=== PATIENT | male | born 1965 | race Caucasian/White ===

== ENCOUNTER 2016-09-14 10:14 | Emergency (ER) | payer MEDICAID ==
[2016-09-14 10:57] LABS: BASOPHILS 0.2 % (0-2); EOSINOPHILS 0.2 % (0-7); HEMATOCRIT 36.1 % (42.0-54.0); HEMOGLOBIN 12.5 g/dL (13.5-17.5); IMMATURE GRANULOCYTES 0.2 % (0-5); MCH 33.1 pg (26.0-34.0); MCHC 34.6 g/dL (31.0-37.0); MCV 95.5 fL (80.0-100.0); MEAN PLATELET VOLUME 9.3 fL (7.4-10.4); MONOCYTES 12.2 % (2-11); NEUTROPHILS 67.2 % (40-80); PLATELET COUNT 207 10x3/uL (130-400); RBC 3.78 10x6/uL (4.20-6.10); RDW 14.9 % (11.5-14.5); WBC 4.4 10x3/uL (4.8-10.8)
[2016-09-14 11:11] LABS: ALBUMIN 3.7 g/dL (3.4-5.0); ANION GAP 13.1 mmol/L (8-16); BILIRUBIN - TOTAL 0.34 mg/dL (0.2-1.3); CALCIUM 8.6 mg/dL (8.5-10.1); CARBON DIOXIDE 27.7 mmol/L (21.0-32.0); CREATININE - SERUM 1.4 mg/dL (0.6-1.3); POTASSIUM - SERUM 3.8 mmol/L (3.5-5.1); PROTEIN - SERUM 7.3 g/dL (6.4-8.2)
== END 2016-09-14 15:10 | disposition other institution (70) ==
LOC: D.ER 10:14 → D.MS 12:46 → D.ER 12:46
PROVIDERS: Emergency Medicine; Nurse Practitioner Family
DX: R10.9 Unspecified abdominal pain (principal); K62.5 Hemorrhage of anus and rectum; K59.03 Drug induced constipation; T40.2X5A Adverse effect of other opioids, initial encounter; Y92.019 Unspecified place in single-family (private) house as the place of occurrence of the external cause; D64.9 Anemia, unspecified; E86.0 Dehydration; N17.9 Acute kidney failure, unspecified; I10 Essential (primary) hypertension; K21.9 Gastro-esophageal reflux disease without esophagitis; C80.1 Malignant (primary) neoplasm, unspecified

== ENCOUNTER → 2017-01-16 10:00 | Outpatient (CLI) | payer MEDICAID ==
[~2017-01-16 10:00] MED LIST: ADOXA100 MG PO; DOXYCYCLINE HY100 M2 PO; ELAVIL25 MG PO; ENDOCET 10-3251 TAB PO; IBUPROFEN200 MG PO; LYRICA75 MG PO; MEPERIDINE HCL50 MG PO; MULTIPLE VITAMI1 TA1 PO; PROTONIX40 MG PO; STOOL SOFTENER100 M1 PO; TRILEPTAL600 MG PO; ZANAFLEX4 MG PO; ZESTORETIC 20-1 EACH PO
[2017-04-01 06:57] VITALS: BMI 30.2
== END | disposition home or self-care (01) ==
LOC: D.CT 10:00
DX: M25.521 Pain in right elbow (principal)

== ENCOUNTER 2017-02-16 11:30 | Day surgery (SDC) | payer MEDICAID ==
[2017-02-13 09:27] LABS: HEMATOCRIT 39.7 % (42.0-54.0); HEMOGLOBIN 13.3 g/dL (13.5-17.5); MCHC 33.5 g/dL (31.0-37.0); MCV 98.5 fL (80.0-100.0); MEAN PLATELET VOLUME 9.8 fL (7.4-10.4); RBC 4.03 10x6/uL (4.20-6.10); RDW 12.4 % (11.5-14.5); WBC 3.7 10x3/uL (4.8-10.8)
[2017-02-13 09:58] LABS: CALC OSMOLALITY 287 mosm/kg (275-300); CALCIUM 9.5 mg/dL (8.5-10.1); CHLORIDE - SERUM 104 mmol/L (98-107); GLUCOSE 113 mg/dL (74-106); POTASSIUM - SERUM 4.2 mmol/L (3.5-5.1); SODIUM 141 mmol/L (136-145); UREA NITROGEN 28 mg/dL (7-18); eGFR NON AFRICAN AMERICAN 84 mL/min (90-120)
[~2017-02-16] VITALS: Ht 175.3 cm; Wt 92.5 kg
[~2017-02-16 11:30] MED LIST changes: -ADOXA100 MG PO; -DOXYCYCLINE HY100 M2 PO; -IBUPROFEN200 MG PO; -MEPERIDINE HCL50 MG PO
[2017-02-16 13:13] VITALS: BP 130/76; Ht 175.3 cm; Wt 92.5 kg
[2017-02-16] MEDS ORDERED: TRILEPTAL600 MG PO (13:44)
[2017-02-16] MEDS ORDERED: ZANAFLEX4 MG PO (13:44)
[2017-02-16] MEDS ORDERED: IBUPROFEN200 MG PO (13:45)
[2017-02-16] MEDS ORDERED: MEPERIDINE HCL50 MG PO (16:08)
--- NOTE | 2017-02-16 17:57 | NUR ---
5025 DISCHARGE INSTRUCTIONS COMPLETE. PT HAS NO QUESTIONS OR CONCERNS AT THIS TIME. PT ESCORTED OUT BY RAYMOND ZURITA.
--- NOTE | 2017-03-09 17:58 | OP ---
PATIENT NAME: DALJIT CLAIRE MEDICAL RECORD: [id number] :[birth year] LOCATION:D.OPS ADMISSION DATE: SURGEON: MAYNOR TSAI MD DATE OF OPERATION: 02/16/2017 PREOPERATIVE DIAGNOSES: 1. Recurrent right lateral epicondylitis. 2. Right cubital tunnel syndrome. POSTOPERATIVE DIAGNOSES: 1. Recurrent right lateral epicondylitis. 2. Right cubital tunnel syndrome. PROCEDURES: 1. Revision right lateral epicondylectomy. 2. Cubital tunnel release. SURGEON: Maynor Tsai MD ANESTHESIA: General. INTRAOPERATIVE COMPLICATIONS: None. SUMMARY OF PATHOLOGIC FINDINGS: The patient had re-avulsed the extensor mechanism with severe tendinitis down to the level of the joint itself and the cubital canal was extremely tight. OPERATIVE SUMMARY IN DETAIL: After obtaining the appropriate orthopedic surgery consent as well as anesthetic consultation, evaluation and clearance, the patient was brought to the operating room and placed on table in supine position. After general laryngeal mask was administered, tourniquet was placed about the proximal aspect of the right upper extremity. Right upper extremity was then prepped and draped in routine sterile fashion. The arm was elevated and exsanguinated, tourniquet inflated to 350 mmHg. Right lateral epicondylectomy was approached first. An incision was made over the lateral epicondyle, taken down to the level of the extensor mechanism and the extensor tendons had been completely released. Some substantial amounts of a fibrotic tendinotic tissue was removed and then the area about the lateral condyle was debrided and a small sagittal saw was take off another layer for good bleeding bone. A small suture anchor was utilized to reapproximate the extensor mechanism back to the bleeding lateral epicondyle. This was closed with #1 Vicryl, for deep closure 2-0 Vicryl followed by 4-0 Prolene. Next, attention was turned to the cubital tunnel. Incision was made between the medial epicondyle and olecranon tip, taken down to the level where the ulnar nerve was identified over the ulnar nerve. Gentle dissection was carried out to expose the ulnar nerve and then adhesive bands both distally and proximally were taken down as the patient did appear to have 2 areas of very tight stenosis. Wound was then irrigated and closed with 2-0 Vicryl followed by 4-0 Prolene in running fashion. Sterile dressings were applied. Tourniquet was deflated. The patient was awakened and taken to the recovery room in stable condition. All final needle and sponge counts were correct. TRANSINT:[id number] Voice Confirmation ID: [id number] DOCUMENT ID: [id number] OPERATIVE REPORT [id number] DALJIT CLAIRE MD, MAYNOR CROUCH at 1758 CC: [id number] DICTATION DATE: 03/09/17 1519 SURGICAL APPLIANCES SALESPERSON: 03/09/17 1613 [facility] 02/16/[address] [address]
== END 2017-02-16 17:55 | disposition home or self-care (01) ==
LOC: D.OPS 11:30 → D.PAN 16:45 → D.OPS 16:45
PROVIDERS: Anesthesiology
DX: G56.21 Lesion of ulnar nerve, right upper limb (principal); M77.11 Lateral epicondylitis, right elbow; I10 Essential (primary) hypertension; Z01.812 Encounter for preprocedural laboratory examination; Z01.810 Encounter for preprocedural cardiovascular examination

== ENCOUNTER 2017-03-01 13:21 | Emergency (ER) | payer MEDICAID ==
[2017-02-16 13:13] VITALS: BMI 30.2
[~2017-03-01 13:21] MED LIST changes: +IBUPROFEN200 MG PO; +MEPERIDINE HCL50 MG PO
== END 2017-03-01 14:57 | disposition home or self-care (01) ==
LOC: D.ER 13:21
DX: M25.521 Pain in right elbow (principal); L53.8 Other specified erythematous conditions; I10 Essential (primary) hypertension

== ENCOUNTER 2017-03-04 16:34 | Inpatient (IN) | payer MEDICAID ==
[~2017-03-04] VITALS: Ht 175.3 cm; Wt 94.3 kg
--- NOTE | 2017-03-04 18:00 | NUR ---
ASSESSMENT PER FLOW SHEET.PT WITHOUT DISTRESS.FAMILY AT BEDSIDE.ORIENTATION TO ROOM.CALL LIGHT IN REACH.IV SITED T LEFT HAND X3 STICKS USUING ASEPTIC TECH,22G.
[2017-03-04 18:11] LABS: BASOPHILS 0.4 % (0-2); EOSINOPHILS 9.3 % (0-7); HEMATOCRIT 39.1 % (42.0-54.0); IMMATURE GRANULOCYTES 0.7 % (0-5); LYMPHOCYTES 17.4 % (15-50); MCH 32.3 pg (26.0-34.0); MCHC 33.2 g/dL (31.0-37.0); MCV 97.3 fL (80.0-100.0); MEAN PLATELET VOLUME 10.1 fL (7.4-10.4); NEUTROPHILS 62.2 % (40-80); RBC 4.02 10x6/uL (4.20-6.10); RDW 12.6 % (11.5-14.5); WBC 5.4 10x3/uL (4.8-10.8)
[2017-03-04 18:12] LABS: PLATELET COUNT 160 10x3/uL (130-400)
[2017-03-04 18:41] LABS: ANION GAP 12.8 mmol/L (8-16); C-REACTIVE PROTEIN 11.8 mg/dL (0.0-0.9); CALCIUM 8.9 mg/dL (8.5-10.1); CREATININE - SERUM 1.2 mg/dL (0.6-1.3); POTASSIUM - SERUM 3.8 mmol/L (3.5-5.1)
[2017-03-04 18:59] VITALS: BP 126/82; BMI 30.8
[2017-03-04 19:06] LABS: ERYTHROCYTE SEDIMENTATION RATE 15 mm/hr (0-20)
[2017-03-04 19:16] VITALS: Ht 175.3 cm; Wt 94.3 kg
[2017-03-04 21:03] VITALS: BP 134/82; BP 93/68
[2017-03-05 00:37] VITALS: BP 125/68
--- NOTE | 2017-03-05 03:00 | NUR ---
PATIENT IS RESTING QUIETLY WITH EYES CLOSED. NO SIGNS OF DISTRESS NOTED. BED IN LOWEST POSITION, CALL LIGHT IN REACH. BED RAILS UP X'S 2.
[2017-03-05 05:00] VITALS: BP 104/64
[2017-03-05 05:57] LABS: BASOPHILS 0.5 % (0-2); HEMATOCRIT 35.1 % (42.0-54.0); HEMOGLOBIN 11.7 g/dL (13.5-17.5); IMMATURE GRANULOCYTES 0.3 % (0-5); LYMPHOCYTES 23.1 % (15-50); MCH 32.2 pg (26.0-34.0); MCHC 33.3 g/dL (31.0-37.0); MCV 96.7 fL (80.0-100.0); MEAN PLATELET VOLUME 9.7 fL (7.4-10.4); MONOCYTES 10.6 % (2-11); NEUTROPHILS 52.5 % (40-80); PLATELET COUNT 207 10x3/uL (130-400); RBC 3.63 10x6/uL (4.20-6.10); RDW 12.6 % (11.5-14.5); WBC 3.9 10x3/uL (4.8-10.8)
[2017-03-05 06:24] LABS: CALC OSMOLALITY 281 mosm/kg (275-300); CALCIUM 8.4 mg/dL (8.5-10.1); CARBON DIOXIDE 28.8 mmol/L (21.0-32.0); CHLORIDE - SERUM 103 mmol/L (98-107); CREATININE - SERUM 1.1 mg/dL (0.6-1.3); GLUCOSE 89 mg/dL (74-106); POTASSIUM - SERUM 3.7 mmol/L (3.5-5.1); SODIUM 139 mmol/L (136-145); UREA NITROGEN 26 mg/dL (7-18); eGFR NON AFRICAN AMERICAN 75 mL/min (90-120)
--- NOTE | 2017-03-05 08:16 | NUR ---
PREOP MEDS ADMINISTERED PER ORDER.
[2017-03-05 08:22] VITALS: BP 135/75
[2017-03-05 10:28] VITALS: BP 151/86
--- NOTE | 2017-03-05 10:52 | NUR ---
PATIENT ARRIVED FROM RECOVERY. VSS. DRESSING IN PLACE TO R ARM. NO COMPLAINTS AT THIS TIME.
--- NOTE | 2017-03-05 13:35 | NUR ---
HELD 0.45 NS FULL BAG WAS IN ROOM. WILL RESCHEDULE WHEN BAG IS EMPTY.
[2017-03-05 16:19] VITALS: BP 120/80
[2017-03-05 20:00] VITALS: BP 122/83
[2017-03-06] VITALS (7 sets, daily range): BP systolic 102–122; BP diastolic 52–67
--- NOTE | 2017-03-06 05:30 | NUR ---
ASSESSED AT THE BEGINNING OF THE SHIFT.. HE WAS WEARING O2 AT 2 LITERS AND WHEN PULSE OX IS LITERS TO KEEP IM STABLE. THE BED IS LOW, RAILS UP X'S 2 WITH THE CALL LIGHT AT HANDS.
[2017-03-06 06:32] LABS: BASOPHILS 0.2 % (0-2); EOSINOPHILS 1.3 % (0-7); HEMATOCRIT 34.3 % (42.0-54.0); HEMOGLOBIN 11.8 g/dL (13.5-17.5); IMMATURE GRANULOCYTES 0.4 % (0-5); LYMPHOCYTES 21.9 % (15-50); MCH 32.9 pg (26.0-34.0); MCHC 34.4 g/dL (31.0-37.0); MCV 95.5 fL (80.0-100.0); MEAN PLATELET VOLUME 9.5 fL (7.4-10.4); MONOCYTES 8.9 % (2-11); NEUTROPHILS 67.3 % (40-80); PLATELET COUNT 209 10x3/uL (130-400); RBC 3.59 10x6/uL (4.20-6.10); RDW 12.2 % (11.5-14.5); WBC 4.7 10x3/uL (4.8-10.8)
[2017-03-06 06:46] LABS: CALC OSMOLALITY 280 mosm/kg (275-300); CALCIUM 8.7 mg/dL (8.5-10.1); CARBON DIOXIDE 31.7 mmol/L (21.0-32.0); CHLORIDE - SERUM 103 mmol/L (98-107); GLUCOSE 109 mg/dL (74-106); POTASSIUM - SERUM 3.7 mmol/L (3.5-5.1); SODIUM 139 mmol/L (136-145); eGFR NON AFRICAN AMERICAN 84 mL/min (90-120)
[2017-03-06 06:48] LABS: UREA NITROGEN 19 mg/dL (7-18)
--- NOTE | 2017-03-06 10:34 | NUR ---
Patient Name: DALJIT CLIARE Admission Status: Urgent Accout number: [id number] Admission Date: 03-04-2017 : 1965 Admission Diagnosis: Attending: MAYNOR TSAI Current LOS: 2 Anticipated DC Date: Planned Disposition: Primary [place]: [place] PRIVATE OPTIONS A[place] Discharge Planning Comments: CM MET WITH PATIENT REGARDING D/C NEEDS AND PLANS. PATIENT STATED HIS DAUGHTER LIVES WITH HIM AND THEY HAVE A RAMP TO ENTER HOME AND NO STAIRS INSIDE. PATIENTS FRIEND (CANDACE) WILL BE DRIVING HIM HOME AT DISCHARGE. PATIENT STATED HE IS INDEPENDENT WITH HIS CARE AND HAS A WALKER, AND CANE AT HOME. PATIENTS PCP IS DR. JORDAN AND PHARMACY IS [facility]. ON . PATIENT SIGNED THE ROB FORM WITH [facility] AND REFERRAL WAS SENT. CM WILL CONTINUE TO FOLLOW PATIENT WITH D/C NEEDS AND PLANS. PCP DR. JORDAN [facility]- [phone] CANDACE (FRIEND) [phone] Supervisor Landscape: Mikaela Pulido Is the patient Alert and Oriented? Yes 0 * How many steps to enter\exit or inside your home? RAMP 0 * PCP DR. JORDAN 0 * Pharmacy [facility]. ON 0 * Preadmission Environment Home with Family 0 * ADLs Independent 0 * Equipment Cane Walker 0 * List name and contact numbers for known caregivers / representatives who currently or will assist patient after discharge: CANDACE (FRIEND) [phone] 0 * Community resources currently utilized None 0 * Additional services required to return to the preadmission environment? Yes 0 * Can the patient safely return to the preadmission environment? Yes 0 * Has this patient been hospitalized within the prior 30 days at any hospital? No 0 Grand Total: 0
--- NOTE | 2017-03-06 19:55 | NUR ---
SITTING UP IN BED, DENIES NEEDS, CALL LIGHT IN REACH, BED LOWEST POSITION, ASSESSMENT COMPLETE, WILL CONTINUE TO MONITOR
[2017-03-07 04:00] VITALS: BP 123/84
--- NOTE | 2017-03-07 04:38 | NUR ---
ASSESSED, PT IS ASLEEP WITH EASY RESPIRATIONS AND NO DISTRESS NOTED. THE BED IS LOW, RAILS UP X'S 2 WITH THE CALL LIGHT AT HAND.
[2017-03-07 07:20] LABS: CALC OSMOLALITY 273 mosm/kg (275-300); CALCIUM 8.8 mg/dL (8.5-10.1); CHLORIDE - SERUM 99 mmol/L (98-107); CREATININE - SERUM 0.9 mg/dL (0.6-1.3); GLUCOSE 91 mg/dL (74-106); POTASSIUM - SERUM 3.5 mmol/L (3.5-5.1); SODIUM 136 mmol/L (136-145); UREA NITROGEN 18 mg/dL (7-18); VANCOMYCIN - TROUGH 11.9 ug/mL (10.0-20.0); eGFR NON AFRICAN AMERICAN > 90 mL/min (90-120)
[2017-03-07 07:23] LABS: BASOPHILS 0.4 % (0-2); EOSINOPHILS 5.7 % (0-7); HEMATOCRIT 36.4 % (42.0-54.0); HEMOGLOBIN 12.3 g/dL (13.5-17.5); IMMATURE GRANULOCYTES 0.4 % (0-5); LYMPHOCYTES 25.7 % (15-50); MCH 31.8 pg (26.0-34.0); MCHC 33.8 g/dL (31.0-37.0); MCV 94.1 fL (80.0-100.0); MEAN PLATELET VOLUME 9.7 fL (7.4-10.4); MONOCYTES 6.6 % (2-11); NEUTROPHILS 61.2 % (40-80); PLATELET COUNT 232 10x3/uL (130-400); RBC 3.87 10x6/uL (4.20-6.10); RDW 12.4 % (11.5-14.5); WBC 4.6 10x3/uL (4.8-10.8)
[2017-03-07 08:56] VITALS: BP 172/82
[2017-03-07 11:54] VITALS: BP 130/80
--- NOTE | 2017-03-07 15:42 | NUR ---
PT RESTING IN BED DENIES NEEDS.
[2017-03-07 15:47] VITALS: BP 105/64
--- NOTE | 2017-03-07 19:50 | NUR ---
FAMILY MEMBERS TALKS TO PT AT BEDSIDE.
[2017-03-07 20:00] VITALS: BP 102/66
--- NOTE | 2017-03-07 21:15 | NUR ---
MEDS GIVEN ORDERED.
[2017-03-08] VITALS: BP 110/68
--- NOTE | 2017-03-08 00:33 | NUR ---
REST QUIETLY IN BED, CALL LIGHT IN REACH.
[2017-03-08 04:00] VITALS: BP 110/70
--- NOTE | 2017-03-08 07:00 | NUR ---
PT REC'D FROM [facility]. RESTING IN BED WATCHING TV. AAOX4. RATING CURRENT PAIN LEVEL IN BLE 09/29. PT STATES THIS IS CHRONIC FOR HIM. PIV TO L HAND RED AND SWOLLEN. IV SITE DC'D WITH CATHETER INTACT. PRESSURE AND DRESSING APPLIED TO SITE. PIV RESITED TO L UPPER ARM WITH 20GUAGE IV. X1 ATTEMPT. DRESSING TO R ELBOW HAS SOME SEROSANQUINOUS DRAINAGE NOTED TO BOTTOM OF DRESSING. PT STATES HE DOES NOT WANT IT CHANGED RIGHT NOW. BED LOW, CALL LIGHT IN REACH, DENIES NEEDS. CPOC.
[2017-03-08 07:54] LABS: BASOPHILS 0.4 % (0-2); EOSINOPHILS 5.5 % (0-7); HEMATOCRIT 34.9 % (42.0-54.0); HEMOGLOBIN 11.9 g/dL (13.5-17.5); IMMATURE GRANULOCYTES 0.5 % (0-5); LYMPHOCYTES 19.1 % (15-50); MCH 32.1 pg (26.0-34.0); MCHC 34.1 g/dL (31.0-37.0); MCV 94.1 fL (80.0-100.0); MEAN PLATELET VOLUME 9.4 fL (7.4-10.4); MONOCYTES 7.9 % (2-11); NEUTROPHILS 66.6 % (40-80); PLATELET COUNT 228 10x3/uL (130-400); RBC 3.71 10x6/uL (4.20-6.10); RDW 12.4 % (11.5-14.5); WBC 5.6 10x3/uL (4.8-10.8)
--- NOTE | 2017-03-08 08:18 | NUR ---
RENAL FUNCTION APPEARS STABLE. WILL GET A TROUGH 03/09 @1530 TO REEVALUATE THE DOSAGE CHANGE
[2017-03-08 08:27] LABS: CALC OSMOLALITY 277 mosm/kg (275-300); CALCIUM 8.8 mg/dL (8.5-10.1); CHLORIDE - SERUM 102 mmol/L (98-107); GLUCOSE 96 mg/dL (74-106); POTASSIUM - SERUM 3.9 mmol/L (3.5-5.1); SODIUM 138 mmol/L (136-145); UREA NITROGEN 17 mg/dL (7-18); eGFR NON AFRICAN AMERICAN 84 mL/min (90-120)
[2017-03-08 08:51] VITALS: BP 134/88
[2017-03-08 12:45] VITALS: BP 115/77
[2017-03-08 16:16] VITALS: BP 126/75
--- NOTE | 2017-03-08 17:45 | NUR ---
PATIENT SITTING UP ON THE SIDE OF THE BED EATING. NO COMPLAINTS. CALL LIGHT WITHIN REACH.
--- NOTE | 2017-03-08 17:46 | NUR ---
PATIENT IN BED WITH NO COMPLAINTS AT THIS TIME. IV INTACT. ANALI LLIGHT WITHIN REACH.
--- NOTE | 2017-03-08 19:35 | NUR ---
FAMILY AT BEDSIDE, DENIES NEEDS, CALL LIGHT IN REACH, WILL CONTINUE TO MONITOR
[2017-03-08 20:00] VITALS: BP 139/81
--- NOTE | 2017-03-08 23:40 | NUR ---
PT SITTING UP IN BED WATCHING TV. NO DISTRESS NOTED. DENIES NEEDS AT THIS TIME. CONTINUE STACKER OPERATOR'S PLAN OF CARE.
[2017-03-09 06:06] LABS: BASOPHILS 0.4 % (0-2); EOSINOPHILS 5.6 % (0-7); HEMATOCRIT 36.3 % (42.0-54.0); HEMOGLOBIN 12.2 g/dL (13.5-17.5); IMMATURE GRANULOCYTES 0.9 % (0-5); LYMPHOCYTES 20.1 % (15-50); MCH 32.1 pg (26.0-34.0); MCHC 33.6 g/dL (31.0-37.0); MCV 95.5 fL (80.0-100.0); MEAN PLATELET VOLUME 9.5 fL (7.4-10.4); MONOCYTES 7.8 % (2-11); NEUTROPHILS 65.2 % (40-80); PLATELET COUNT 252 10x3/uL (130-400); RDW 12.5 % (11.5-14.5); WBC 5.7 10x3/uL (4.8-10.8)
[2017-03-09 06:36] LABS: CALC OSMOLALITY 273 mosm/kg (275-300); CALCIUM 8.7 mg/dL (8.5-10.1); CARBON DIOXIDE 28.3 mmol/L (21.0-32.0); CHLORIDE - SERUM 99 mmol/L (98-107); CREATININE - SERUM 0.9 mg/dL (0.6-1.3); GLUCOSE 94 mg/dL (74-106); SODIUM 136 mmol/L (136-145); UREA NITROGEN 19 mg/dL (7-18); eGFR NON AFRICAN AMERICAN > 90 mL/min (90-120)
--- NOTE | 2017-03-09 07:41 | NUR ---
REPORT RECEIVED, ASSUMED CARE OF PT. RESTING WITH EYES SHUT, EASILY AROUSED. NO NEEDS VOICED AT THIS TIME. BED IN LOWEST POSITION, SIDE RAILS UP X 2, CALL LIGHT WITHIN REACH.
[2017-03-09 07:46] VITALS: BP 127/85; BP 139/89
[2017-03-09] MEDS ORDERED: DOXYCYCLINE HY100 M2 PO (08:21)
--- NOTE | 2017-03-09 08:55 | NUR ---
DISCHARGE ORDERS AND INSTRUCTIONS SENT TO MELISSA AT HOME. CALLED AND SPOKE WITH WILLY ABOUT PATIENT BEING DISCHARGED TODAY.
--- NOTE | 2017-03-09 09:27 | OP ---
PATIENT NAME: DALJIT CLAIRE MEDICAL RECORD: [id number] :[birth year] LOCATION:D.MS [id number] ADMISSION DATE:03/04/17 SURGEON: MAYNOR TSAI MD DATE OF OPERATION: 03/05/2017 DATE OF OPERATION: 03/05/2017. PREOPERATIVE DIAGNOSIS: Septic arthritis of the right elbow. POSTOPERATIVE DIAGNOSIS: Septic arthritis of the right elbow. PROCEDURE: Irrigation and debridement of the septic arthritis to include end of the skin, subcutaneous tissue, fat, fascia, muscle, bone along with foreign matter from previous surgery. OPERATIVE SUMMARY IN DETAIL: After obtaining the appropriate preoperative orthopedic surgery consent as well as anesthetic consultation, evaluation and clearance, the patient was brought to the operating room and placed on the operating table in supine position. After adequate general laryngeal mask was administered, the patient's right upper extremity was prepped and draped in routine sterile fashion. Previously placed sutures were removed. The wound was opened up and purulence was noted. Cultures were taken. Curettage along with scalpel and rongeur debridement of any nonviable-appearing tissue was undertaken, copious amounts of bulb syringe irrigation were used to irrigate out the entire joint itself. The wound was then filled with Vitagel and covered with sterile dressings. The patient was awakened and taken to recovery in stable condition. All final needle and sponge counts were correct at the end of the case. TRANSINT:[id number] Voice Confirmation ID: [id number] DOCUMENT ID: [id number] MAYNOR TSAI MD at 0927 CC: [id number] DICTATION DATE: 03/05/17 1503 DIRECTOR MEETINGS: 03/05/17 1611 ADM IN [facility] [address] [place] [address]
--- NOTE | 2017-03-09 10:22 | NUR ---
DISCHARGE INSTRUCTIONS GIVEN TO PT, VERBALIZED UNDERSTANDING AND SIGNED. R ELBOW DRSG CHANGED, L UPPER ARM IV D/C'D, CATHETER INTACT, BLEED CONTROL AND BANDAGE APPLIED.
--- NOTE | 2017-03-09 11:01 | NUR ---
PT DISCHARGED FROM FLOOR VIA WHEELCHAIR WITH HOSPITAL STAFF. PERSONAL BELONGINGS WITH PT. NO SIGNS OF ACUTE DISTRESS.
== END 2017-03-09 11:01 | disposition home health service (06) | DRG 857 ==
LOC: D.MS 16:34
PROVIDERS: ADMIT Orthopaedic Surgery
PROC: 0PBK0ZZ Excision of Right Ulna, Open Approach (ICD-10-PCS; principal; 2017-03-05 08:15)
DX: T81.4XXA Infection following a procedure, initial encounter (principal); M00.9 Pyogenic arthritis, unspecified; I10 Essential (primary) hypertension; K21.9 Gastro-esophageal reflux disease without esophagitis

== ENCOUNTER 2017-04-01 05:08 | Day surgery (SDC) | payer MEDICAID ==
[2017-03-31 14:07] LABS: HEMATOCRIT 41.8 % (42.0-54.0); HEMOGLOBIN 14.2 g/dL (13.5-17.5); MCH 32.3 pg (26.0-34.0); MCV 95.2 fL (80.0-100.0); MEAN PLATELET VOLUME 10.2 fL (7.4-10.4); RBC 4.39 10x6/uL (4.20-6.10)
[2017-03-31 14:39] LABS: ANION GAP 13.1 mmol/L (8-16); CALCIUM 9.6 mg/dL (8.5-10.1); CARBON DIOXIDE 29.9 mmol/L (21.0-32.0); CREATININE - SERUM 1.3 mg/dL (0.6-1.3)
[~2017-04-01] VITALS: Ht 175.3 cm; Wt 92.5 kg
--- NOTE | ~2017-04-01 | OP ---
PATIENT NAME: DALJIT CLAIRE MEDICAL RECORD: [id number] :65 LOCATION:D.OPS ADMISSION DATE: SURGEON: MAYNOR TSAI MD DATE OF OPERATION: 04/01/2017 PREOPERATIVE DIAGNOSES: Open wound of the right elbow, status post incision and drainage for wound infection. POSTOPERATIVE DIAGNOSES: Open wound of the right elbow, status post incision and drainage for wound infection. PROCEDURES: 1. Recurrent debridement to include skin, subcutaneous tissue, portions of fat, fascia, muscle and bone. 2. Primary closure of the entire joint capsule. 3. Addition of Neox Mario graft. SURGEON: Maynor Tsai MD ANESTHESIA: General. INTRAOPERATIVE COMPLICATIONS: None. SUMMARY OF PATHOLOGIC FINDINGS: The wound bed was very clear. He did have an open elbow joint. The wound bed looked in excellent shape after it was cleaned again for the second time. OPERATIVE SUMMARY IN DETAIL: After obtaining the appropriate preoperative orthopedic surgery consent as well as anesthetic consultation, evaluation, and clearance, the patient was brought to the operating room and placed on the operating table in the supine position. After general laryngeal mask airway was administered, tourniquet was placed about the proximal aspect of the right upper extremity. Right upper extremity was prepped and draped in routine sterile fashion. The tourniquet was not used during the case. Copious pulsatile lavage irrigation was utilized to completely debride the entire joint itself. There again, it was very clean in its entirety. At this point, rongeur curettage were used to recreate bleeding bone and to cleanse the lateral epicondylar edge and debride the bone back to bleeding bone. Next, flaps of the patient's extensor wad were created and then brought together using #1 Vicryl in [id number] fashion for good hold, multiple were used and a good seal across the joint was obtained. Next, Neox Mario was used about the edges to enhance wound healing. This was followed by 2-0 Vicryl and 4-0 Prolene running closure. Sterile dressings were applied. A posterior splint was applied. The patient was awakened, taken to recovery room in stable condition. All final needle and sponge counts were correct. TRANSINT:[id number] Voice Confirmation ID: [id number] DOCUMENT ID: [id number] OPERATIVE REPORT [id number] NAE CLAIRENY Ivett QUIN THEODORE, MAYNOR CROUCH at 1207 CC: [id number] DICTATION DATE: 04/01/17 0952 ACCOUNTS ADMINISTRATOR: 04/01/17 1133 [facility] [address] [id number] [place] [address]
[~2017-04-01 05:08] MED LIST changes: +DOXYCYCLINE HY100 M2 PO
[2017-04-01 06:57] VITALS: BP 93/55; Ht 175.3 cm; Wt 92.5 kg
[2017-04-01] MEDS ORDERED: ADOXA100 MG PO (09:48)
== END 2017-04-01 12:35 | disposition home or self-care (01) ==
LOC: D.OPS 05:08 → D.PAN 08:30 → D.OPS 08:45
PROVIDERS: Anesthesiology
DX: S51.001A Unspecified open wound of right elbow, initial encounter (principal); Z01.812 Encounter for preprocedural laboratory examination; X58.XXXA Exposure to other specified factors, initial encounter

== ENCOUNTER → 2017-10-30 17:23 | Outpatient (CLI) | payer MEDICARE ==
[2017-04-01 06:57] VITALS: BMI 30.2
[~2017-10-30 17:23] MED LIST changes: +ADOXA100 MG PO
== END | disposition home or self-care (01) ==
LOC: D.MRI 17:23
DX: M25.521 Pain in right elbow (principal)